=== PATIENT | female | born 1965 | race Two or more races ===

== ENCOUNTER 2018-07-01 22:30 | Emergency (ER) | payer OTHER ==
[~2018-07-01] VITALS: Ht 149.9 cm; Wt 49.9 kg
[2018-07-01] MEDS ORDERED: BENADRYL ALLERG25 MG (22:34)
[2018-07-01] MEDS ORDERED: DILANTIN100 MG (22:34)
== END 2018-07-03 11:18 | disposition home or self-care (01) ==
LOC: ER 22:30
DX: K59.09 Other constipation (principal); K56.41 Fecal impaction; R10.31 Right lower quadrant pain